=== PATIENT | male | born 1995 | race Caucasian/White ===

== ENCOUNTER 2019-04-15 09:09 | Emergency (ER) | payer OTHER ==
[~2019-04-15] VITALS: Ht 185.4 cm; Wt 86.2 kg
[2019-04-15] MEDS ORDERED: HYDROXYZINE PA100 MG ORAL (09:23)
[2019-04-15] MEDS ORDERED: LEVETIRACETAM500 MG ORAL (09:23)
[2019-04-15] MEDS ORDERED: TRAZODONE HCL150 MG ORAL (09:23)
[2019-04-15] MEDS ORDERED: VIIBRYD1 EAC2 PO (09:23)
[2019-04-15] MEDS ORDERED: PANTOPRAZOLE SO40 MG ORAL (09:23)
[2019-04-15 09:31] VITALS: BP 113/81
--- NOTE | 2019-04-15 09:36 | Emergency Room Report ---
History of Present Illness General Chief Complaint: Nausea, Vomiting, and Diarrhea Source: Patient Present Illness HPI Patient has a history of alcohol and drug abuse in the past. Patient used to abuse alcohol and Xanax. He is completed a outpatient treatment. He states that his last drink was about 14 days ago. Last use of Xanax was about 12 days ago. Patient states however in the last couple days he has felt tremors. He feels like he is withdrawing from alcohol. States that he is feeling nauseous with episodes of vomiting. Denies any fever chest pain. Denies any hallucinations. Denies any suicidal ideation or auditory hallucinations. No other complaints are noted. No other modifying factors. No other associated signs and symptoms. No other complaints were noted. Allergies: Coded Allergies: No Known Allergies (Unverified , 04/15/19) Patient History Past Medical History: none Past Surgical History: none Social History: Reports: alcohol use, drug use Reviewed Nursing Documentation: PMH: Agreed; PSxH: Agreed Nursing Documentation-PMH Past Medical History: No History, Except For Hx Seizures: Yes Review of Systems All Other Systems: negative except mentioned in HPI Physical Exam Vital Signs Date Time Temp Pulse Resp B/P (MAP) Pulse Ox O2 Delivery O2 Flow Rate FiO2 04/15/19 09:11 98.4 62 19 113/81 (92) 98 Room Air Sp02 EP Interpretation: reviewed, normal General Appearance: normal inspection, alert, mild distress - Tremulous Head: atraumatic Eyes: bilateral eye normal inspection ENT: normal ENT inspection, hearing grossly normal, normal voice Neck: normal inspection, full range of motion, supple, no bony tend Respiratory: normal inspection, lungs clear, normal breath sounds, no respiratory distress, no retraction, no wheezing Cardiovascular #1: regular rate, rhythm, no edema Gastrointestinal: normal inspection, normal bowel sounds, non tender, soft, no guarding, no hernia Genitourinary: no CVA tenderness Musculoskeletal: normal inspection, back normal, normal range of motion Neurologic: normal inspection, alert, responsive, speech normal Psychiatric: normal inspection, judgement/insight normal, depressed affect, anxious Skin: no rash Medical Decision Making Diagnostic Impression: Primary Impression: Alcohol withdrawal Additional Impressions: Benzodiazepine withdrawal Dehydration ER Course Patient presents emergency department today complaining of alcohol and benzodiazepine withdrawal. Differential considerations include severe withdrawal with limited tremors electrolyte abnormality dehydration just name a few. Given the severity of the patient's presentation I felt this is a highly complex patient. This patient required extensive workup. Patient's laboratory work-up was negative. Patient was given fluids and Librium with significant improvement symptoms. Given the patient feels much better, and he had a negative workup, I feel the patient can be discharged home. Patient is advised to follow up with primary doctor in 2-3 days and return the emergency room for any worsening symptoms and as needed. Labs Test 04/15/19 09:40 White Blood Count 9.6 K/UL (4.8-10.8) Red Blood Count 5.12 M/UL (4.70-6.10) Hemoglobin 15.0 G/DL (14.2-18.0) Hematocrit 43.0 % (42.0-52.0) Mean Corpuscular Volume 84 FL (80-99) Mean Corpuscular Hemoglobin 29.2 PG (27.0-31.0) Mean Corpuscular Hemoglobin Concent 34.8 G/DL (32.0-36.0) Red Cell Distribution Width 10.8 % (11.6-14.8) Platelet Count 466 K/UL (150-450) Mean Platelet Volume 5.0 FL (6.5-10.1) Neutrophils (%) (Auto) 74.1 % (45.0-75.0) Lymphocytes (%) (Auto) 15.6 % (20.0-45.0) Monocytes (%) (Auto) 5.3 % (1.0-10.0) Eosinophils (%) (Auto) 3.5 % (0.0-3.0) Basophils (%) (Auto) 1.5 % (0.0-2.0) Sodium Level 141 MMOL/L (136-145) Potassium Level 3.5 MMOL/L (3.5-5.1) Chloride Level 106 MMOL/L (98-107) Carbon Dioxide Level 25 MMOL/L (21-32) Anion Gap 10 mmol/L (5-15) Blood Urea Nitrogen 12 mg/dL (7-18) Creatinine 1.0 MG/DL (0.55-1.30) Estimat Glomerular Filtration Rate > 60 mL/min (>60) Glucose Level 107 MG/DL (74-106) Calcium Level 9.6 MG/DL (8.5-10.1) Total Bilirubin 0.6 MG/DL (0.2-1.0) Aspartate Amino Transf (AST/SGOT) 57 U/L (15-37) Alanine Aminotransferase (ALT/SGPT) 97 U/L (12-78) Alkaline Phosphatase 79 U/L (46-116) Total Protein 7.9 G/DL (6.4-8.2) Albumin 4.2 G/DL (3.4-5.0) Globulin 3.7 g/dL Albumin/Globulin Ratio 1.1 (1.0-2.7) Lipase 100 U/L (73-393) Last Vital Signs Date Time Temp Pulse Resp B/P (MAP) Pulse Ox O2 Delivery O2 Flow Rate FiO2 04/15/19 09:31 98.4 19 113/81 98 Room Air 04/15/19 09:11 62 Status: improved Disposition: HOME, SELF-CARE Condition: Stable Scripts Ondansetron (Zofran) 4 Mg Tablet 4 MG ORAL Q6H PRN for Nausea & Vomiting, #15 TAB 0 Refills Prov: Lexx Medina MD 04/15/19 Lexx Mdeina MD Apr 15, 2019 09:36
[2019-04-15] MEDS ORDERED: chlordiazePOXIDE 25mg Cap ORAL ONE (09:45)
--- NOTE | 2019-04-15 09:54 | NUR ---
ED Nurse Note: pt presents as per triage note from rehab facility. pt relates he has been having diarrhea with n/v x 15 days since stopping meds in rehab and ceasing of etoh. pt with anxious affect no SI/HI. person present with him from rehab facility. pt tolerates iv start well, zofran given. librium also ordered. a/ox4 no tremors noted while in ed placed on shipper receiver.
[2019-04-15 10:13] LABS: BASOPHILS % (AUTO) 1.5 % (0.0-2.0); EOSINOPHILS % (AUTO) 3.5 % (0.0-3.0); LYMPHOCYTES % (AUTO) 15.6 % (20.0-45.0); MEAN CORPUSCULAR VOLUME 84 FL (80-99); MONOCYTES % (AUTO) 5.3 % (1.0-10.0); NEUTROPHILS % (AUTO) 74.1 % (45.0-75.0); PLATELET COUNT 466 K/UL (150-450); RED BLOOD COUNT 5.12 M/UL (4.70-6.10); RED CELL DISTRIBUTION WIDTH 10.8 % (11.6-14.8); WHITE BLOOD COUNT 9.6 K/UL (4.8-10.8)
[2019-04-15 10:25] LABS: ANION GAP 10 mmol/L (5-15); BLOOD UREA NITROGEN 12 mg/dL (7-18); CALCIUM 9.6 MG/DL (8.5-10.1); CARBON DIOXIDE 25 MMOL/L (21-32); CHLORIDE 106 MMOL/L (98-107); POTASSIUM 3.5 MMOL/L (3.5-5.1); SODIUM 141 MMOL/L (136-145)
[2019-04-15 10:29] LABS: ALANINE AMINOTRANSFERASE 97 U/L (12-78); ALBUMIN 4.2 G/DL (3.4-5.0); ALBUMIN/GLOBULIN RATIO 1.1 (1.0-2.7); ALKALINE PHOSPHATASE 79 U/L (46-116); ASPARTATE AMINO TRANSFERASE 57 U/L (15-37); BILIRUBIN,TOTAL 0.6 MG/DL (0.2-1.0)
[2019-04-15] MEDS ORDERED: ZOFRAN4 MG ORAL (10:49)
[2019-04-15 11:24] VITALS: BP 119/62
--- NOTE | 2019-04-15 11:26 | NUR ---
ER DISCHARGE NOTE: Patient is cleared to be discharged per ERMD, pt is aox4, on room air, with stable vital signs. pt was given dc and prescription instructions, pt was able to verbalize understanding, pt id band and iv site removed without complications. pt is able to ambulate with steady gait. pt took all belongings. pt accompanied by friend from rehab. pt amb steady gait and states feeling improved. no tremors noted.
== END 2019-04-15 11:27 | disposition home or self-care (01) ==
LOC: EMR 09:35
DX: F10.239 Alcohol dependence with withdrawal, unspecified (principal); F13.239 Sedative, hypnotic or anxiolytic dependence with withdrawal, unspecified; E86.0 Dehydration
CPT/HCPCS: 36415; 80053; 83690; 85025; 96361; 96374; 99284; J2405; J7030